=== PATIENT | male | born 1955 | race Caucasian/White ===

== ENCOUNTER 2023-09-18 10:20 | Emergency (ER) | payer OTHER ==
[~2023-09-18] VITALS: Ht 177.8 cm; Wt 77.1 kg
[2023-09-18] MEDS ORDERED: methylPREDNISolone sod succ 125 MG VIAL IM ONE (11:25)
== END 2023-09-18 13:30 | disposition left against medical advice (07) ==
LOC: ED 10:20
DX: M25.551 Pain in right hip (principal); Z53.29 Procedure and treatment not carried out because of patient's decision for other reasons